=== PATIENT | female | born 1955 | race Two or more races ===

== ENCOUNTER → 2018-06-19 | Outpatient (CLI) | payer BC ==
--- NOTE | 2018-06-20 11:15 | MM ---
Reason for exam: screening (asymptomatic). Last mammogram was performed 2 years and 1 month ago. History: Patient is postmenopausal and had first child at age 31. Family history of breast cancer in mother at age 45. Saline implants in both breasts. Physical Findings: A clinical breast exam by your physician is recommended on an annual basis and results should be correlated with mammographic findings. MG 3D Screen Mammo Imp/Cad Bilateral CC, MLO, and ID view(s) were taken. Prior study comparison: May 28, 2016, right breast MG work up mamm w CAD RT. May 21, 2016, bilateral MG screening mammo implant/CAD. There are scattered fibroglandular densities. No significant changes when compared with prior studies. ASSESSMENT: Benign, BI-RAD 2 RECOMMENDATION: Routine screening mammogram of both breasts in 1 year.
== END | disposition home or self-care (01) ==
LOC: RADMAMWWP 14:15
PROVIDERS: ATTEND Family Medicine
DX: Z12.31 Encounter for screening mammogram for malignant neoplasm of breast (principal)
CPT/HCPCS: 77063; 77067

== ENCOUNTER → 2021-08-29 | Outpatient (CLI) | payer MEDICARE ==
--- NOTE | 2021-08-29 18:30 | BD ---
EXAMINATION TYPE: Axial Bone Density DATE OF EXAM: 08/29/2021 COMPARISON: 2015 CLINICAL HISTORY: post menopausal Height: 5'1 Weight: 221 FRAX RISK QUESTIONS: Secondary Osteoporosis: RISK FACTORS HISTORY OF: Family History of Osteoporosis: y Active: n Postmenopausal woman: y MEDICATIONS: Additional Medications: depression, Additional History: EXAM MEASUREMENTS: Bone mineral densitometry was performed using the [email or web address] System. Bone mineral density as measured about the Lumbar spine is: ----- L1-L4(G/cm2): 1.095 T Score Values are as follows: ----- L2: 0.1 ----- L3: -0.4 ----- L4: -0.9 ----- L1-L4: -0.7 Bone mineral density has: Decreased -0.3% since study of: 06/27/2016 Bone mineral density about the R hip (g/cm2): 0.799 Bone mineral density about the L hip (g/cm2): 0.762 T Score values are as follows: -----R Neck: -1.7 -----L Neck: -2.0 -----R Total: -1.2 -----L Total:-1.1 Bone mineral density has: Decreased -2.2% since study of: 06/27/2016 IMPRESSION: Osteopenia (T Score between -2.5 and -1). There is slightly increased risk of fracture and the patient may be considered for treatment. Re-Screen 2-5 years. NOTE: T-SCORE=SD OF THE YOUNG ADULT MEAN.
--- NOTE | 2021-08-31 09:55 | MM ---
Reason for exam: screening (asymptomatic). Last mammogram was performed 3 years and 2 months ago. History: Patient is postmenopausal and had first child at age 31. Family history of breast cancer in mother at age 45. Saline implants in both breasts. Physical Findings: A clinical breast exam by your physician is recommended on an annual basis and results should be correlated with mammographic findings. MG 3D Screen Mammo Imp/Cad Bilateral CC, MLO, and ID view(s) were taken. Prior study comparison: June 19, 2018, bilateral MG 3d screen mammo imp/cad. May 28, 2016, right breast MG work up mamm w CAD RT. There are scattered fibroglandular densities. Focal asymmetry right lower outer quadrant, adjacent to prothesis, questionable leak. Bilateral breast prothesis calcified. This finding is changed when compared with previous exams. ASSESSMENT: Incomplete: need additional imaging evaluation, BI-RAD 0 RECOMMENDATION: Ultrasound of the right breast. [facility] will attempt to contact patient to return for ultrasound.
== END | disposition home or self-care (01) ==
LOC: RADMAMWWP 13:28
PROVIDERS: ATTEND Family Medicine
DX: Z12.31 Encounter for screening mammogram for malignant neoplasm of breast (principal); M85.80 Other specified disorders of bone density and structure, unspecified site; Z78.0 Asymptomatic menopausal state
CPT/HCPCS: 77063; 77067; 77080

== ENCOUNTER → 2021-09-07 | Outpatient (CLI) | payer MEDICARE ==
--- NOTE | 2021-09-07 12:04 | USB ---
Reason for exam: additional evaluation requested from abnormal screening. History: Patient is postmenopausal and had first child at age 31. Family history of breast cancer in mother at age 45. Saline implants in both breasts. Physical Findings: A clinical breast exam by your physician is recommended on an annual basis and results should be correlated with mammographic findings. US Breast Workup Limited RT Right limited breast ultrasound including focal area of concern, retroareolar and axilla demonstrates a 4.8 x 4.8cm posterior, shadowing lesion at 7-8 o'clock, cannot seen implant. These results were verbally communicated with the patient and result sheet given to the patient on 09/07/21. ASSESSMENT: Suspicious, BI-RAD 4 RECOMMENDATION: Surgical consultation and breast MRI of the right breast. Called Dr. Aaron's office with mammographic findings and has scheduled an appointment for the patient for 09/07/21 at 1:[address] Brown. PRELIMINARY REPORT CALLED AND FAXED TO DR. BROWN ON 09/07/21.
== END | disposition home or self-care (01) ==
LOC: RADUSWWP 10:21
PROVIDERS: ATTEND Family Medicine
DX: R92.8 Other abnormal and inconclusive findings on diagnostic imaging of breast (principal); Z78.0 Asymptomatic menopausal state; Z80.3 Family history of malignant neoplasm of breast

== ENCOUNTER → 2021-09-07 | Outpatient (CLI) | payer MEDICARE ==
[2021-09-07 12:52] VITALS: BP 145/84; PULSE 66; RESP 17; TEMP 97.9
--- NOTE | 2021-09-07 13:08 | P.GSHP ---
History of Present Illness H&P Date: 09/07/21 Chief Complaint: Abnormal right breast mammogram Kristina is a 66-year-old white female seen in consultation for Dr. Aaron regarding a radiographic abnormality in the right breast. She underwent a bilateral screening mammogram on 220 222. This revealed focal asymmetry in the right lower outer quadrant adjacent to a breast prosthesis questionable leak versus mass. No lesions of concern were identified in the left breast. These films were reviewed in detail with Dr. Aaron from radiology. She then underwent an ultrasound of the right breast and 3322. This revealed a 4.8 x 4.8 cm posterior shadowing lesion at the 7 to 8 o'clock position. This was considered to be suspicious and breast MRI was recommended. She does not feel any new lumps masses or nodules of concern in either breast. She is not complaining of any nipple discharge or skin changes. She has not had any recent trauma or infection in the breast. She has had bilateral implants for 44 years. She believes these were silicone implants. Caffiene: 3 cups/day nicotine: none chocolate: occasional BCP: none hormones: none Family history: maternal grandmother: stomach mother: breast cancer Hormonal History: menarche: 11 , breast fed: no, age at first : 31 menopause: 54 BCP: none Hormones: none Surgical history: 2 C-sections Bilateral breast implants Medical History: anxiety/depression Social History: nicotine: stopped 32 years ago; used to smoke < PPD for 12 years alcohol: occasional monthly drugs: none - Constitutional Constitutional: Denies chills, Denies fever - EENT Eyes: denies blurred vision, denies pain Ears: bilateral: decreased hearing (hearing aids), deny: tinnitus Ears, nose, mouth and throat: Denies headache, Denies sore throat - Breasts Breasts: bilateral: as per HPI - Cardiovascular Cardiovascular: Denies chest pain, Denies shortness of breath - Respiratory Respiratory: Denies cough, Denies 7 - Gastrointestinal Gastrointestinal: Denies abdominal pain, Denies diarrhea, Denies nausea, Denies vomiting - Genitourinary (Female) Genitourinary: Denies dysuria, Denies hematuria - Menstruation Menstruation: Reports postmenopausal - Musculoskeletal Musculoskeletal: Denies myalgias - Integumentary Integumentary: Denies pruritus, Denies rash - Neurological Neurological: Denies numbness, Denies weakness - Psychiatric Psychiatric: Reports anxiety, Reports depression - Endocrine Comment: weight gain Endocrine: Reports weight change, Denies fatigue - Hematologic/Lymphatic Comment: none - Allergic/Immunologic Allergic/Immunologic: Reports as per HPI Past Medical History Past Medical History: No Reported History History of Any Multi-Drug Resistant Organisms: None Reported Past Surgical History: Section Additional Past Surgical History / Comment(s): 2 C-SECTIONS Past Psychological History: Depression Smoking Status: Never smoker Medications and Allergies Home Medications Medication Instructions Recorded Confirmed Type Citalopram Hydrobromide [CeleXA] 10 mg PO DAILY 09/07/21 09/07/21 History Allergies Allergy/AdvReac Type Severity Reaction Status Date / Time No Known Allergies Allergy Unverified 09/07/21 12:45 Surgical - Exam Vital Signs Temp Pulse Resp BP Pulse Ox 97.9 F 66 17 145/84 93 L 09/07/21 12:47 09/07/21 12:47 09/07/21 12:47 09/07/21 12:47 09/07/21 12:47 BMI 40.4 - General no distress - Eyes normal ocular movement - Neck trachea midline - Respiratory normal respiratory effort, clear to auscultation - Cardiovascular Rhythm: regular Heart Sounds: normal: S1, S2 - Abdomen Abdomen: soft - Integumentary normal turgor - Neurologic no disoriented, no combative - Musculoskeletal normal gait - Psychiatric oriented to time, oriented to person, oriented to place, speech is normal, memory intact Breast Exam: BRA: 40D inspection: Bilateral grade 3 ptosis Bilateral fungal infection underneath the breast Palpation: Right breast: Multi-positional exam fibrocystic changes, the implant is able to be palpated with some fullness at the lateral aspect the 70 8 o'clock position no discrete dominant mass Right axilla: No adenopathy of concern {: Multiple positional exam fibrocystic changes no dominant masses or nodules of concern, implant able to be palpated Left axilla: No adenopathy of concern Results Bilateral mammograms and ultrasound revealed reviewed with Dr. Aaron from radiology. There is a fullness near the right breast implant in the lateral aspect 70 8 o'clock position which is demonstrated on ultrasound as well. No discrete lesions of concern are noted in the left breast. Assessment and Plan Assessment: Impression: Abnormal right breast mammogram and ultrasound question implant rupture versus new nodule in the breast Anxiety/depression Decreased hearing wears hearing aids Plan: MRI of the breast If MRI is unable to be done secondary to insurance purposes would recommend needle localization and open biopsy of the area of concern in the right breast as Dr. Aaron does not believe they can do a core biopsy secondary to proximity to the implant this may necessitate removal of the implant if this is a leaking implant CC: Dr. Aaron
== END ==
LOC: WWCWWP 12:17
PROVIDERS: ATTEND Surgery
DX: R92.8 Other abnormal and inconclusive findings on diagnostic imaging of breast (principal); H91.93 Unspecified hearing loss, bilateral; F41.9 Anxiety disorder, unspecified; F32.A Depression, unspecified; Z87.891 Personal history of nicotine dependence

== ENCOUNTER → 2021-09-25 | Outpatient (CLI) | payer MEDICARE ==
--- NOTE | 2021-09-27 07:12 | BMR ---
EXAMINATION TYPE: MR breast BILAT wo/w con DATE OF EXAM: 09/25/2021 COMPARISON: 3-D bilateral screening mammogram August 29, 2021 BI-RADS 0. Older mammogram 2017. Diag nostic Right breast ultrasound September 07, 2021 BI-RADS 4 HISTORY: Abnormal Mammogram. Family history of breast cancer and mom at age 45. History of bilateral subpectoral saline implants. TECHNIQUE: A series of fat and water weighted images in the long and short axis views of both breasts are obtained in conjunction with dynamic contrast MRI with subtraction technique. The patient was i njected with 10ml mL intravenous Gadavist gadolinium contrast. Three-dimensional and additional pos tprocessing imaging is created on independent workstation and reviewed during official interpretation of this study. FINDINGS: There is redemonstration of scattered fibroglandular tissue throughout both breasts. There is redemonstration of subglandular silicone implants bilaterally. There is symmetric volume to the im plants with areas of internal low signal or capsular volume loss or retraction consistent with partia l intracapsular rupture bilaterally. Corresponding to mammogram abnormality along the anterior slight lateral aspect of the right implant there is lobulated density that is isointense to silicone on seq uences consistent with focus of extracapsular rupture which correlates with the snowstorm appearance on recent ultrasound. Mild surrounding enhancement is presumed reactive on dynamic postcontrast imagi ng. No suspicious axillary adenopathy identified bilaterally. No significant cystic change or focal f luid collections seen on T2 and STIR weighted images. Dynamic imaging shows mild symmetric background enhancement with some areas of tiny nodularity bilaterally. There is no suspicious pathologic enhancement or enhancing masses in either breast. No suspicious ski n thickening is seen. The chest wall is intact. IMPRESSION: MRI evidence of intracapsular rupture in the bilateral subglandular implants though volum e is fairly symmetric and maintained bilaterally. There is focus of extracapsular rupture on the righ t accounting for recent mammogram and ultrasound abnormality. No MRI evidence for invasive malignancy in either breast. BI-RADS 2 benign findings Recommendation: Manage implant findings on clinical basis. Patient due for routine mammogram August 2022 to be back on annual schedule.
== END | disposition home or self-care (01) ==
LOC: RADMRIMAIN 07:48
PROVIDERS: ATTEND Surgery
DX: T85.49XA Other mechanical complication of breast prosthesis and implant, initial encounter (principal); Z98.82 Breast implant status; Y79.2 Prosthetic and other implants, materials and accessory orthopedic devices associated with adverse incidents
CPT/HCPCS: C8937; C8908; A9585; 77049

== ENCOUNTER → 2021-10-06 | Outpatient (CLI) | payer MEDICARE ==
[2021-10-06 12:40] VITALS: BP 126/85; PULSE 76; RESP 16; TEMP 98
--- NOTE | 2021-10-06 13:06 | P.PN ---
Subjective Progress Note Date: 10/06/21 Principal diagnosis: bilateral ruptured breast implants Kristina is a 66-year-old white female seen in consultation for Dr. Aaron regarding a radiographic abnormality in the right breast. She underwent a bilateral screening mammogram on 220 222. This revealed focal asymmetry in the right lower outer quadrant adjacent to a breast prosthesis questionable leak versus mass. No lesions of concern were identified in the left breast. These films were reviewed in detail with Dr. aAron from radiology. She then underwent an ultrasound of the right breast and 3322. This revealed a 4.8 x 4.8 cm posterior shadowing lesion at the 7 to 8 o'clock position. This was considered to be suspicious and breast MRI was recommended. She does not feel any new lumps masses or nodules of concern in either breast. She is not complaining of any nipple discharge or skin changes. She has not had any recent trauma or infection in the breast. She has had bilateral implants for 44 years. She believes these were silicone implants. MRI of both breasts was performed on . This revealed intracapsular rupture of bilateral subglandular implants. Additionally a focus of extracapsular rupture on the right accounting for the recent mammographic and ultrasound abnormalities. No MRI evidence for invasive cancer in either breast was noted. Caffiene: 3 cups/day nicotine: none chocolate: occasional BCP: none hormones: none Family history: maternal grandmother: stomach mother: breast cancer Hormonal History: menarche: 11 , breast fed: no, age at first : 31 menopause: 54 BCP: none Hormones: none Surgical history: 2 C-sections Bilateral breast implants Medical History: anxiety/depression Social History: nicotine: stopped 32 years ago; used to smoke < PPD for 12 years alcohol: occasional monthly drugs: none - Constitutional Constitutional: Denies chills, Denies fever - EENT Eyes: denies blurred vision, denies pain Ears: bilateral: decreased hearing (hearing aids), deny: tinnitus Ears, nose, mouth and throat: Denies headache, Denies sore throat - Breasts Breasts: bilateral: as per HPI - Cardiovascular Cardiovascular: Denies chest pain, Denies shortness of breath - Respiratory Respiratory: Denies cough - Gastrointestinal Gastrointestinal: Denies abdominal pain, Denies diarrhea, Denies nausea, Denies vomiting - Genitourinary (Female) Genitourinary: Denies dysuria, Denies hematuria - Menstruation Menstruation: Reports postmenopausal - Musculoskeletal Musculoskeletal: Denies myalgias - Integumentary Integumentary: Denies pruritus, Denies rash - Neurological Neurological: Denies numbness, Denies weakness - Psychiatric Psychiatric: Reports anxiety, Reports depression - Endocrine Comment: weight gain Endocrine: Reports weight change, Denies fatigue - Hematologic/Lymphatic Comment: none - Allergic/Immunologic Allergic/Immunologic: Reports as per HPI Objective - Vital Signs Vital signs: Vital Signs Temp 98.0 F 10/06/21 12:35 Pulse 76 10/06/21 12:35 Resp 16 10/06/21 12:35 BP 126/85 10/06/21 12:35 Pulse Ox 100 10/06/21 12:35 Intake & Output 10/05/21 10/06/21 10/06/21 18:59 06:59 18:59 Weight 100.244 kg - Exam BMI 40.4 - Constitutional General appearance: Present: cooperative - EENT Eyes: Present: EOMI ENT: Present: hearing grossly normal - Neck Neck: Present: normal ROM - Respiratory Respiratory: bilateral: CTA - Cardiovascular Rhythm: regular - Integumentary Integumentary: Present: normal turgor - Musculoskeletal Musculoskeletal: Present: gait normal - Psychiatric Psychiatric: Present: A&O x's 3, appropriate affect, intact judgment & insight - Additional findings Additional findings: Breast Exam: Inspection: Bilateral grade 3 ptosis Palpation: Right breast multiple positional exam fibrocystic changes implant was able to be palpated with some fullness the lateral aspect Right axilla: No adenopathy of concern Left breast: Multi-positional exam fibrocystic changes the dominant masses or nodules of concern Implant able to be palpated Left axilla: No adenopathy of concern Assessment and Plan Assessment: Impression: Bilateral intracapsular rupture of implants, extracapsular rupture of right breast implant, uncertain if these are saline or silicone implants Plan: Secondary to implant rupture and uncertainty as to whether these are saline or silicone the patient wishes that the implants be removed. Risks and benefits of the procedure were discussed with the patient. Risks include but are not limited to bleeding, infection, reaction to the anesthetic. The patient understands and wishes the implants to be removed. CC: Dr. Aaron
== END ==
LOC: WWCWWP 11:53
PROVIDERS: ATTEND Surgery
DX: T85.49XA Other mechanical complication of breast prosthesis and implant, initial encounter (principal); F41.9 Anxiety disorder, unspecified; F32.A Depression, unspecified; Z87.891 Personal history of nicotine dependence

== ENCOUNTER → 2021-12-14 | Outpatient (CLI) | payer MEDICARE ==
[2021-12-14 15:30] VITALS: BP 140/85; PULSE 70; RESP 17; TEMP 97.1
--- NOTE | 2021-12-14 15:42 | P.PN ---
Subjective Progress Note Date: 12/14/21 Principal diagnosis: bilateral ruptured breast implants bilateral ruptured breast implants Kristina is a 66-year-old white female seen in consultation for Dr. Aaron regarding a radiographic abnormality in the right breast. She underwent a bilateral screening mammogram on . This revealed focal asymmetry in the right lower outer quadrant adjacent to a breast prosthesis questionable leak versus mass. No lesions of concern were identified in the left breast. These f ilms were reviewed in detail with Dr. Aaron from radiology. She then underwent an ultrasound of the right breast on 3321. This revealed a 4.8 x 4.8 cm posterior shadowing lesion at the 7 to 8 o'clock position. This was considered to be suspicious and breast MRI was recommended. She does not feel any new lumps masses or nodules of concern in either breast. She is not complaining of any nipple discharge or skin changes. She has not had any recent trauma or infection in the breast. She has had bilateral implants for 44 years. She believes these were silicone implants. MRI of both breasts was performed on . This revealed intracapsular rupture of bilateral subglandular implants. Additionally a focus of extracapsular rupture on the right accounting for the recent mammographic and ultrasound abnormalities. No MRI evidence for invasive cancer in either breast was noted. Caffiene: 3 cups/day nicotine: none chocolate: occasional BCP: none hormones: none Family history: maternal grandmother: stomach mother: breast cancer Hormonal History: menarche: 11 , breast fed: no, age at first : 31 menopause: 54 BCP: none Hormones: none Surgical history: 2 C-sections Bilateral breast implants Medical History: anxiety/depression Social History: nicotine: stopped 32 years ago; used to smoke < PPD for 12 years alcohol: occasional monthly drugs: none - Constitutional Constitutional: Denies chills, Denies fever - EENT Eyes: denies blurred vision, denies pain Ears: bilateral: decreased hearing (hearing aids), deny: tinnitus Ears, nose, mouth and throat: Denies headache, Denies sore throat - Breasts Breasts: bilateral: as per HPI - Cardiovascular Cardiovascular: Denies chest pain, Denies shortness of breath - Respiratory Respiratory: Denies cough - Gastrointestinal Gastrointestinal: Denies abdominal pain, Denies diarrhea, Denies nausea, Denies vomiting - Genitourinary (Female) Genitourinary: Denies dysuria, Denies hematuria - Menstruation Menstruation: Reports postmenopausal - Musculoskeletal Musculoskeletal: Denies myalgias - Integumentary Integumentary: Denies pruritus, Denies rash - Neurological Neurological: Denies numbness, Denies weakness - Psychiatric Psychiatric: Reports anxiety, Reports depression - Endocrine Comment: weight gain Endocrine: Reports weight change, Denies fatigue - Hematologic/Lymphatic Comment: none - Allergic/Immunologic Allergic/Immunologic: Reports as per HPI Objective - Vital Signs Vital signs: Vital Signs Temp 97.1 F L 12/14/21 15:27 Pulse 70 12/14/21 15:27 Resp 17 12/14/21 15:27 BP 140/85 12/14/21 15:27 Pulse Ox 98 12/14/21 15:27 FiO2 Intake & Output 12/13/21 12/14/21 12/14/21 18:59 06:59 18:59 Weight 98.43 kg - Exam BMI: 39.7 - Constitutional General appearance: Present: cooperative - EENT Eyes: Present: EOMI ENT: Present: hearing grossly normal - Neck Neck: Present: normal ROM - Respiratory Respiratory: bilateral: CTA - Cardiovascular Heart sounds: normal: S1, S2 - Integumentary Integumentary: Present: normal turgor - Musculoskeletal Musculoskeletal: Present: gait normal - Psychiatric Psychiatric: Present: A&O x's 3, appropriate affect, intact judgment & insight - Additional findings Additional findings: Breast Exam: Inspection: Bilateral grade 3 ptosis Palpation: Right breast multiple positional exam fibrocystic changes implant was able to be palpated with some fullness the lateral aspect Right axilla: No adenopathy of concern Left breast: Multi-positional exam fibrocystic changes the dominant masses or nodules of concern Implant able to be palpated Left axilla: No adenopathy of concern Assessment and Plan Assessment: Assessment and Plan Assessment: Impression: Bilateral intracapsular rupture of implants, extracapsular rupture of right breast implant, uncertain if these are saline or silicone implants Plan: Secondary to implant rupture and uncertainty as to whether these are saline or silicone the patient wishes that the implants be removed. Risks and benefits of the procedure were discussed with the patient. Risks include but are not limited to bleeding, infection, reaction to the anesthetic. The patient under stands and wishes the implants to be removed. Patient is not interested in seeing a plastic surgeon. The patient is not interested in reconstruction. Bilateral breast implant removal, bilateral capsulectomy. CC: Dr. Aaron
== END ==
LOC: WWCWWP 15:18
PROVIDERS: ATTEND Surgery
DX: T85.49XD Other mechanical complication of breast prosthesis and implant, subsequent encounter (principal); F41.9 Anxiety disorder, unspecified; Z87.891 Personal history of nicotine dependence; F32.A Depression, unspecified

== ENCOUNTER 2021-12-26 07:06 | Day surgery (SDC) | payer MEDICARE ==
[2021-12-22 15:50] VITALS: BMI 39.6
[~2021-12-26 07:06] MED LIST: HEPARIN SODIUM,PORCINE/PF 5,000 UNIT/0.5 ML SYRINGE SQ PRN; Pre Op ABX Message 1 EACH MISC MISCELLANE ONE
[2021-12-26] MEDS ORDERED: ONDANSETRON 4 MG/2 ML VIAL IVP ONE ×2 (07:26→14:01)
[2021-12-26] MEDS ORDERED: METOCLOPRAMIDE 5 MG/ML 2 ML VIAL IVP PRN (07:26)
[2021-12-26] MEDS ORDERED: LACTATED RINGERS 1,000 ML IV SCH (07:26)
[2021-12-26] MEDS ORDERED: LIDOCAINE 1% (10MG/ML) FOR IV START INTRADERMA PRN (07:26)
[2021-12-26] MEDS ORDERED: DEXAMETHASONE SOD PHOSPHATE 4 MG/ML 1 ML VIAL IV ONE (07:26)
[2021-12-26 07:37] VITALS: RESP 16
[2021-12-26] MEDS ORDERED: PHENYLEPHRINE-0.9% NACL SYG 1,000 MCG/10 ML SYRINGE ONE (08:37)
[2021-12-26] MEDS ORDERED: PROPOFOL 10 MG/ML 20 ML VIAL IV ONE (08:37)
[2021-12-26] MEDS ORDERED: MIDAZOLAM 2 MG/2 ML VIAL ONE (08:37)
[2021-12-26] MEDS ORDERED: ROCURONIUM 10 MG/ML (5 ML VIAL) IV ONE (08:37)
[2021-12-26] MEDS ORDERED: LIDOCAINE 2% INJ 20 MG/ML (2 ML VIAL) ONE (08:37)
[2021-12-26] MEDS ORDERED: GLYCOPYRROLATE 0.2 MG/ML 2 ML VIAL ONE (08:37)
[2021-12-26] MEDS ORDERED: SUCCINYLCHOLINE CHLORIDE 100 MG/5 ML SYR IV ONE (08:37)
[2021-12-26] MEDS ORDERED: fentaNYL (PF) 50 MCG/ML 2 ML AMP ONE (08:37)
[2021-12-26] MEDS ORDERED: SODIUM CHLORIDE 0.9% 50 ML with ceFAZolin 2,000 MG IV ONE ×2 (09:00)
[2021-12-26] MEDS ORDERED: LACTATED RINGERS 1,000 ML IV ONE (10:50)
--- NOTE | 2021-12-26 11:00 | P.OP ---
Date of Procedure: 12/26/21 Preoperative Diagnosis: Bilateral ruptured silicone implants Postoperative Diagnosis: Same Procedure(s) Performed: Removal of bilateral ruptured silicone implants and capsulectomy bilateral Anesthesia: CHARLENEA Surgeon: Caryn Brown Estimated Blood Loss (ml): 30 IV fluids (ml): 900 Urine output (ml): 125 Pathology: other (Bilateral breast implants and bilateral capsulectomy) Condition: stable Disposition: same day Indications for Procedure: Bilateral ruptured breast implants. Right worse than the left Operative Findings: Bilateral ruptured implants Description of Procedure: The patient was taken to the operative suite. Following induction of anesthesia both breasts were prepped and draped in a sterile fashion. The right breast was approached initially. An infra areolar incision was made and carried through the breast tissue and the pectoralis muscle to the area of the capsule of the implant. Careful dissection was performed on the capsule. It appeared that the capsule had ruptured in several places but particularly in the lateral upper knee area. Dissection was performed around this. The capsule was removed with the implant and the capsule was removed on the chest wall as well. Following this the wound was well irrigated. Hemostasis was attained. Surgicel and pelvis performed was placed. #10 CASANDRA drain was placed. The deep tissues were closed using 3-0 Vicryl suture. The subcutaneous tissue was closed using 3-0 Vicryl suture. A 4-0 Monocryl was placed. The left breast was approached. An infra-areolar incision was made. Dissection was performed down to the capsule of the implant. The dissection was performed around the capsule including the area of the capsule on the chest wall. The implant appeared to be ruptured. The implant and capsule were removed. The wound was well irrigated. After we were assured that hemostasis was attained Surgicel and pyriform was placed. A #10 CASANDRA drain was placed. The deep tissues were closed using 3-0 Vicryl suture. The subcutaneous tissue was closed using 3-0 Vicryl suture. The skin was reapproximated using 4-0 Monocryl. Steri-Strips were placed bilaterally. The patient tolerated the procedure in stable condition. All instrument and sponge counts were correct at the end of the case.
--- NOTE | 2021-12-26 11:01 | P.DS ---
Providers Attending physician: Caryn Brown Primary care physician: Tennille Aaron Plan - Discharge Summary Discharge Rx Participant: Yes New Discharge Prescriptions: No Action Citalopram Hydrobromide [CeleXA] 10 mg PO DAILY Discharge Medication List Citalopram Hydrobromide [CeleXA] 10 mg PO DAILY 09/07/21 [History] Follow up Appointment(s)/Referral(s): Caryn Brown MD [STAFF PHYSICIAN] - 01/05/22 3:20 pm Activity/Diet/Wound Care/Special Instructions: teach patient drain care, drain and record BID and as needed do not drive until seen by Dr. Lawton may shower after 48 hours wear bra at all times Discharge Disposition: HOME SELF-CARE
[2021-12-26 11:18] VITALS: TEMP 97
[2021-12-26] MEDS: HYDROmorphone 0.5 MG/0.5 ML SYRINGE IVP PRN ×2 (11:57→12:10)
[2021-12-26 12:39] VITALS: BP 116/78
[2021-12-26 12:51] VITALS: PULSE 67
[2021-12-26] MEDS ORDERED: ONDANSETRON 4 MG/2 ML VIAL ONE (14:02)
== END 2021-12-26 15:00 | disposition home or self-care (01) ==
LOC: OR 07:06
PROVIDERS: ATTEND Surgery
DX: T85.49XA Other mechanical complication of breast prosthesis and implant, initial encounter (principal); Z80.3 Family history of malignant neoplasm of breast; Z98.891 History of uterine scar from previous surgery; F41.9 Anxiety disorder, unspecified; F32.A Depression, unspecified; Z87.891 Personal history of nicotine dependence; Z79.899 Other long term (current) drug therapy; Z98.890 Other specified postprocedural states
CPT/HCPCS: 19330; 88305; J2250; J1100; J2405; J0690; J3010; J2370; J0330; J2704; J1170; J1644; J2001

== ENCOUNTER 2021-12-31 15:45 | Emergency (ER) | payer MEDICARE ==
[2021-12-31 16:39] VITALS: BP 129/73; PULSE 63; RESP 20; TEMP 98.1
--- NOTE | 2021-12-31 18:25 | ED ---
General Adult HPI - General Chief complaint: Recheck/Abnormal Lab/Rx Stated complaint: L side drain tube complications/12/26 procedure Time Seen by Provider: 12/31/21 16:55 Source: patient, RN notes reviewed Mode of arrival: ambulatory Limitations: no limitations - History of Present Illness Initial comments: Patient is a pleasant 66-year-old female presents to the emergency room with complaints of a drain to her left breast no longer draining and having drainage come out around the insertion site. She underwent a bilateral breast implant removal and treatment for encapsulation after silicone rupture earlier this week by Dr. Jered Perkins. Surgery was completed on 12/26/2021. Her right breast drain continues to remain intact with serous drainage. She reports that the drainage that is coming out of her breast around her CASANDRA tube is bloody in nature. She denies any purulent drainage or foul odor. She reports that the breast itself does not hurt with the exception of incisional pain. She denies any fevers chills, chest pain, shortness of breath, abdominal pain, nausea or vomiting. She reports that she had elective breast surgery approximately 20 years ago. Had no complications until recently. Her other family other past medical history is anxiety and depression. She denies any other complaints or concerns this time. - Related Data Home Medications Medication Instructions Recorded Confirmed Citalopram Hydrobromide [CeleXA] 10 mg PO DAILY 09/07/21 12/26/21 Allergies Allergy/AdvReac Type Severity Reaction Status Date / Time No Known Allergies Allergy Verified 12/31/21 16:39 Review of Systems ROS Statement: Those systems with pertinent positive or pertinent negative responses have been documented in the HPI. ROS Other: All systems not noted in ROS Statement are negative. Past Medical History Past Medical History: No Reported History History of Any Multi-Drug Resistant Organisms: None Reported Past Surgical History: Section Additional Past Surgical History / Comment(s): 2 C-SECTIONS. left breast surgery december 2021 Past Psychological History: Depression Smoking Status: Never smoker Past Alcohol Use History: None Reported Past Drug Use History: None Reported General Exam Limitations: no limitations General appearance: alert, in no apparent distress Head exam: Present: atraumatic, normocephalic, normal inspection Eye exam: Present: normal appearance, PERRL, EOMI. Absent: scleral icterus, conjunctival injection, periorbital swelling ENT exam: Present: normal exam, mucous membranes moist Neck exam: Present: normal inspection. Absent: tenderness, meningismus, lymphadenopathy Respiratory exam: Absent: respiratory distress, accessory muscle use GI/Abdominal exam: Present: soft, normal bowel sounds. Absent: distended, tenderness, guarding, rebound, rigid Extremities exam: Present: normal inspection, full ROM, normal capillary refill. Absent: tenderness, pedal edema, joint swelling, calf tenderness Neurological exam: Present: alert, oriented X3, CN II-XII intact Psychiatric exam: Present: normal affect, normal mood Skin exam: Present: other (Follow-up proximated bilateral breast incisions with Steri-Strips intact. Sutures for CASANDRA to left breast intact with serous drainage noted around site.) Course Vital Signs 12/31/21 16:36 Temperature 98.1 F Pulse Rate 63 Respiratory 20 Rate Blood Pressure 129/73 O2 Sat by Pulse 98 Oximetry Medical Decision Making - Medical Decision Making Drains placed 4 days ago to bilateral breast concern for clogged strain. Attempted to milk unsuccessfully. Contacted Dr. Brown follows the surgeon of the case. Advise likely a seroma. Significant CASANDRA drain stripping completed without complication with good drainage output 70 mL of dark brown drainage obtained without any noted clots foul odor or thickness. No erythema or induration around site. Per Dr. Brown to follow-up in her office on Saturday but call tomorrow January 01 for follow-up visit. CASANDRA drain dressing reapplied. Educated patient regarding CASANDRA drainage instructions. No indication for diagnostic testing her laboratory studies at this time. Case discussed with Dr. Burger Disposition Clinical Impression: Bleeding from Jamshid-Bishop drain Disposition: HOME SELF-CARE Condition: Stable Additional Instructions: Continue to keep incisions and drainages sites clean and dry. Maintain records of drainage amount. Ensure bulb of Jamshid-Bishop compressed. Monitor for signs and symptoms of infection. Please contact Dr. Jered Perkins's office on Saturday to schedule an appointment with her on Saturday. Please continue to train Please return to the Emergency Department if symptoms worsen or any other concerns. Is patient prescribed a controlled substance at d/c from ED?: No Referrals: Tennille Aaron MD [Primary Care Provider] - 1-2 days Caryn Brown MD [STAFF PHYSICIAN] - As Soon As Possible Time of Disposition: 18:30
== END 2021-12-31 18:36 | disposition home or self-care (01) ==
LOC: EC 15:45
DX: T82.838A Hemorrhage due to vascular prosthetic devices, implants and grafts, initial encounter (principal); F41.9 Anxiety disorder, unspecified; F32.A Depression, unspecified
CPT/HCPCS: 99283

== ENCOUNTER → 2022-01-05 | Outpatient (CLI) | payer MEDICARE ==
[2022-01-05 13:23] VITALS: BP 134/81; PULSE 62; RESP 16; TEMP 97.9
--- NOTE | 2022-01-05 13:30 | P.PN ---
Progress Note - Text Progress Note Date: 01/05/22 Flora is a 66 year old female status post resection of bilateral implants and capsulectomies performed on [address] 122. Right breast implant and capsular tissue: Benign fibrotic capsule with calcification histiocytic inflammation, ruptured breast implant Left breast implant and capsule: Benign fibrotic capsule with calcification history ascitic inflammation. Refractory all foreign material associated with fibrous tissue inflammation. Ruptured breast implant. He was seen in the emergency room approximately a week ago secondary to the fact that the drain on the left side has stopped working. The drain was stripped and began to work again. Since that time both drains have worked with serous output. However over the last several days she is putting minimal output from both drains. She has no complaints of fever or chills or complications related to the procedure. Physical exam: Lungs: Clear Heart: S1-S2 Bilateral incisions clean and dry Bilateral drains minimal serous output Impression: Patient doing well postprocedure Plan: DC drains Follow-up bilateral mammogram in 6 months with position exam at that time
== END ==
LOC: WWCWWP 13:14
PROVIDERS: ATTEND Surgery
DX: Z48.817 Encounter for surgical aftercare following surgery on the skin and subcutaneous tissue (principal)

== ENCOUNTER → 2022-12-28 | Outpatient (CLI) | payer MEDICARE ==
--- NOTE | 2022-12-28 11:23 | MM ---
Reason for Exam: Follow-up at short interval from prior study. Last screening mammogram was performed 3 month(s) ago. Patient History: Menarche at age 11. First Full-Term at age 31. Late child-bearing (after 30). Postmenopausal. 12/26/2021, Bilateral Implant Removal. Bilateral Implants. Mother had breast cancer, age 45. Risk Values: Tiera 5 year model risk: 3.4%. NCI Lifetime model risk: 10.9%. Prior Study Comparison: 06/19/2018 Bilateral Screening Mammogram, [facility]. 08/29/2021 Bilateral Screening Mammogram, [facility]. 09/07/2022 Bilateral MG screening mammo w CAD, [facility]. Tissue Density: Left: There are scattered fibroglandular densities. Findings: Analyzed By CAD. 7 mm nodular density at approximately 9:00 position left breast is unchanged. Ultrasound is recommended. No additional lung nodules. No evidence for suspicious microcalcifications. Overall Assessment: Incomplete: need additional imaging evaluation, BI-RAD 0 Management: Diagnostic Breast Ultrasound of the left breast. . Results were given to the patient verbally at the time of exam. Patient should continue monthly self-breast exams. A clinical breast exam by your physician is recommended on an annual basis. This exam should not preclude additional follow-up of suspicious palpable abnormalities. Note on Tiera scores and lifetime risk: 1. A Tiera score greater than 3% is considered moderate risk. If this is the case, consider specialist referral to assess eligibility for a risk reducing agent. 2. If overall lifetime risk for the development of breast cancer is 20% or higher, the patient may qualify for future screening with alternating mammogram and breast MRI. Electronically signed and approved by: Adam Thomason M.D. Radiologis
--- NOTE | 2022-12-28 11:51 | USB ---
Reason for Exam: Follow-up at short interval from prior study. Patient History: Menarche at age 11. First Full-Term at age 31. Late child-bearing (after 30). Postmenopausal. 12/26/2021, Bilateral Implant Removal. Bilateral Implants. Mother had breast cancer, age 45. Risk Values: Tiera 5 year model risk: 3.4%. NCI Lifetime model risk: 10.9%. Technique: Method: Targeted. Prior Study Comparison: 06/19/2018 Bilateral Screening Mammogram, [facility]. 08/29/2021 Bilateral Screening Mammogram, [facility]. 09/07/2022 Bilateral MG screening mammo w CAD, [facility]. Findings: The upper inner quadrant of the left breast, the axilla of the left breast and the retroareolar of the left breast were scanned. Hyperechoic lesion is unchanged at the left 10:00 position 4 cm from the nipple and measures 7 x 4 mm and is felt to reflect a small lipoma. Overall Assessment: Benign, BI-RAD 2 Management: Screening Mammogram of both breasts in 9 months. A clinical breast exam by your physician is recommended on an annual basis and results should be correlated with mammographic findings. This exam should not preclude additional follow-up of suspicious palpable abnormalities. Results were given to the patient verbally at the time of exam. Electronically signed and approved by: Adam Thomason M.D. Radiologis
== END | disposition home or self-care (01) ==
LOC: RADMAMWWP 10:49
PROVIDERS: ATTEND Family Medicine
DX: R92.8 Other abnormal and inconclusive findings on diagnostic imaging of breast (principal); Z78.0 Asymptomatic menopausal state; Z80.3 Family history of malignant neoplasm of breast
CPT/HCPCS: 77065; 76642; G0279; 77061

== ENCOUNTER → 2023-11-25 | Outpatient (CLI) | payer MEDICARE ==
--- NOTE | 2023-11-25 15:58 | XR ---
EXAMINATION TYPE: XR Hip Complete LT DATE OF EXAM: 11/25/2023 3:30 PM CLINICAL INDICATION:Female, 68 years old with history of M25.552 PAIN IN LEFT HIP; [facility] COMPARISON: None. TECHNIQUE: XR Hip Complete LT; hip was examined in the frontal and lateral projections and a AP pelvi s. FINDINGS: No evidence for acute process, joint dislocation or significant soft tissue swelling. Osteo phyte formation of the superior acetabulum of the hip. There is mild joint space narrowing. IMPRESSION: 1. No evidence for acute process. 2. Mild hip osteoarthrosis.
--- NOTE | 2023-11-26 16:46 | BD ---
EXAMINATION TYPE: Axial Bone Density DATE OF EXAM: 11/25/2023 CLINICAL HISTORY: 68 years old Female. ICD-10 CODE: Z87.0 ASYMPTOMATIC MENOPAUSAL STATE Height: 61.25 Weight: 230 FRAX RISK QUESTIONS: Family History (Parent hip fracture): no History of Fracture in Adulthood: no Secondary Osteoporosis: no RISK FACTORS HISTORY OF: Surgery to Spine/Hip(right/left)/Wrist (right/left): no MEDICATIONS: Thyroid Medications: no Osteoporosis Medications: no EXAM MEASUREMENTS: Bone mineral densitometry was performed using the [employer] System. Bone mineral density as measured about the Lumbar spine is: ----- L1-L4(G/cm2): 1.079 T Score Values are as follows: ----- L1: -2.4 ----- L2: -0.8 ----- L3: -0.3 ----- L4: -0.3 ----- L1-L4: -0.8 Z Score Values are as follows: ----- L1: -1.9 ----- L2: -0.3 ----- L3: 0.2 ----- L4: 0.2 ----- L1-L4: -0.4 Bone mineral density has: Decreased -1.5% since study of: 08/29/2021 Bone mineral density about the R hip (g/cm2): 0.864 Bone mineral density about the L hip (g/cm2): 0.874 T Score values are as follows: -----R Neck: -2.3 -----L Neck: -1.7 -----R Total: -1.1 -----L Total: -1.1 Z Score values are as follows: -----R Neck: -1.4 -----L Neck: -0.8 -----R Total: -0.6 -----L Total: -0.5 Bone mineral density has: Increased 0.8% since study of: 08/29/2021 FRAX%s: The graph provided illustrates a 11.3% chance for a major osteoporotic fx and a 2.3% chance f or the hips probability for fx in 10 years time. IMPRESSION: Osteopenia (T Score between -2.5 and -1). There is slightly increased risk of fracture and the patient may be considered for treatment. Re-Screen 2-5 years. NOTE: T-SCORE=SD OF THE YOUNG ADULT MEAN.
== END | disposition home or self-care (01) ==
LOC: RADMAMWWP 14:49
PROVIDERS: ATTEND Family Medicine
DX: Z12.31 Encounter for screening mammogram for malignant neoplasm of breast (principal); M85.89 Other specified disorders of bone density and structure, multiple sites; M16.12 Unilateral primary osteoarthritis, left hip; Z78.0 Asymptomatic menopausal state
CPT/HCPCS: 73502; 77063; 77067; 77080